=== PATIENT | female | born 1955 | race Caucasian/White ===

== ENCOUNTER → 2016-09-07 | Outpatient (CLI) | payer MEDICARE, MEDICAID | LOC: WI 12:54 | PROVIDERS: ATTEND Internal Medicine Medical Oncology | DX: Z12.31 Encounter for screening mammogram for malignant neoplasm of breast (principal); Z85.3 Personal history of malignant neoplasm of breast | CPT/HCPCS: 77066; G0204 ==

== ENCOUNTER → 2017-02-09 | Outpatient (CLI) | payer MEDICARE, MEDICAID ==
--- NOTE | 2017-02-09 13:12 | WOMENS IMAGING REPORT ---
EXAM DESCRIPTION: BONE DENSITY HIP/SPINE COMPLETED DATE/TIME: 02/09/2017 12:39 pm REASON FOR STUDY: OSTEOPOROSIS M81.0 AGE-RELATED OSTEOPOROSIS W/O CURRENT PATHOLOGICAL FRAC COMPARISON: 2014 TECHNIQUE: Dual-Energy X-ray Absorptiometry (DEXA) of the AP Spine and Hip. LIMITATIONS: None. FINDINGS: LUMBAR SPINE: The bone mineral density (BMD) measured from L1-L4 in the AP projection correlates with a T-score of -1.8, which is osteopenic as defined by the World Health Organization. HIP: The bone mineral density (BMD) measured in the left femoral neck at the hip correlates with a T-score of -2.6, which is osteoporotic as defined by the World Health Organization. IMPRESSION: 1. LUMBAR SPINE: Osteopenic 2. HIP: Osteoporotic COMMENT: The World Health Organization defines low BMD as follows: T-score: Normal: Greater than -1.0 Osteopenia: Between -1.0 and -2.5 Osteoporosis: Less than -2.5 without fractures Established osteoporosis: Less than -2.5 with fractures In general, you may wish to consider: Diagnosis Treatment Follow-up DEXA Normal BMD Prevention 2-3 years Osteopenia Prevention/Therapy 1-2 years Osteoporosis Therapy Yearly TECHNICAL DOCUMENTATION: JOB ID: [id number]- All Rights Reserved
== END ==
LOC: WI 10:27
PROVIDERS: ATTEND Internal Medicine Medical Oncology
DX: M81.0 Age-related osteoporosis without current pathological fracture (principal)
CPT/HCPCS: 77080

== ENCOUNTER → 2017-07-28 | Outpatient (CLI) | payer MEDICARE, MEDICAID ==
--- NOTE | 2017-07-30 12:33 | XCELERA REPORT ---
[address] [address] Transthoracic Echocardiogram Report Name: MERLY SETHI Age: 62 yrs Gender: Female : 1955 Patient Status: Outpatient Patient Location: Study Date: 07/28/2017 10:58 AM Height: 60 in Weight: 117 lb BSA: 1.5 m2 Procedure: A two-dimensional transthoracic echocardiogram with color flow Doppler was performed. The study was technically good with many images being of high quality. Reason For Study: PALPITYATIONS History: PALPITYATIONS. Ordering Physician: CARMENZA DENNEY Performed By: Kimberly Mercer Interpretation Summary There is normal left ventricular wall thickness. LV EF is > THAN 60% Left ventricular systolic function is normal. Doppler measurements suggest normal left ventricular diastolic function The left ventricular wall motion is normal. There is no thrombus. The right ventricle is normal in size and function. The right atrium is normal. The left atrial size is normal. The interatrial septum is intact with no evidence for an atrial septal defect. There is no evidence of mitral valve prolapse. There is no vegetation seen on the mitral valve. There is no mitral valve stenosis. There is a mild amount of mitral regurgitation There is no aortic valvular vegetation. There is no aortic valve stenosis There is no LVOT obstruction. No aortic regurgitation is present. There is no tricuspid stenosis. There is a trace to mild amount of tricuspid regurgitation Right ventricular systolic pressure is at the upper limits of normal of normal.RVSP is 30 mm of Hg , with RA mean of 5. There is no pulmonic valvular stenosis. There is no pulmonic valvular regurgitation. The aortic root is normal size. There is no pericardial effusion. MMode/2D Measurements & Calculations RVDd: 3.0 cm LVIDd: 4.2 cm FS: 33.8 % Ao root diam: 3.2 cm IVSd: 0.82 cm LVIDs: 2.8 cm EDV(Teich): 78.1 ml LVPWd: 0.79 cm ESV(Teich): 28.9 ml Ao root area: 7.8 cm2 EF(Teich): 63.0 % Doppler Measurements & Calculations MV E max berta: MV dec slope: Ao V2 max: LV V1 max P.0 cm/sec 114.0 cm/sec 4.8 mmHg MV A max berta: 381.3 cm/sec2 Ao max PG: LV V1 max: 74.6 cm/sec MV dec time: 5.2 mmHg 109.2 cm/sec MV E/A: 1.1 0.22 sec PA V2 max: TR max berta: 69.2 cm/sec 249.4 cm/sec PA max PG: TR max P.9 mmHg 1.9 mmHg Left Ventricle The left ventricle is normal in size. There is normal left ventricular wall thickness. LV EF is > THAN 60%. Left ventricular systolic function is normal. Doppler measurements suggest normal left ventricular diastolic function. The left ventricular wall motion is normal. There is no thrombus. There is no ventricular septal defect visualized. Right Ventricle The right ventricle is normal in size and function. Atria The right atrium is normal. The left atrial size is normal. The interatrial septum is intact with no evidence for an atrial septal defect. Mitral Valve There is no evidence of mitral valve prolapse. There is no vegetation seen on the mitral valve. There is no mitral valve stenosis. There is a mild amount of mitral regurgitation. Aortic Valve There is no aortic valvular vegetation. There is no aortic valve stenosis. There is no LVOT obstruction. No aortic regurgitation is present. Tricuspid Valve There is no tricuspid stenosis. There is a trace to mild amount of tricuspid regurgitation. Right ventricular systolic pressure is at the upper limits of normal. of normal.RVSP is 30 mm of Hg , with RA mean of 5. Pulmonic Valve There is no pulmonic valvular stenosis. There is no pulmonic valvular regurgitation. Great Vessels The aortic root is normal size. Effusions There is no pericardial effusion. : CARMENZA DENNEY > Carmenza Denney
== END ==
LOC: SP 10:49
PROVIDERS: ATTEND Specialist
DX: R01.1 Cardiac murmur, unspecified (principal)
CPT/HCPCS: 93306

== ENCOUNTER → 2017-08-03 | Outpatient (CLI) | payer MEDICARE, MEDICAID ==
--- NOTE | 2017-08-03 12:08 | RADIOLOGY REPORT (SQ) ---
EXAM DESCRIPTION: CHEST PA/LAT COMPLETED DATE/TIME: 08/03/2017 10:11 am REASON FOR STUDY: COPD COMPARISON: None. EXAM PARAMETERS: NUMBER OF VIEWS: two views TECHNIQUE: Digital Frontal and Lateral radiographic views of the chest acquired. RADIATION DOSE: NA LIMITATIONS: none FINDINGS: LUNGS AND PLEURA: No opacities, masses or pneumothorax. No pleural effusion. MEDIASTINUM AND HILAR STRUCTURES: No masses or contour abnormalities. HEART AND VASCULAR STRUCTURES: Heart normal size. No evidence for failure. BONES: No acute findings. HARDWARE: Clips overlying right breast. OTHER: No other significant finding. IMPRESSION: NO ACUTE RADIOGRAPHIC FINDING IN THE CHEST. TECHNICAL DOCUMENTATION: JOB ID: [id number] [employer]- All Rights Reserved
== END ==
LOC: RAD 09:41
PROVIDERS: ATTEND Physician Assistant
DX: J44.9 Chronic obstructive pulmonary disease, unspecified (principal)
CPT/HCPCS: 71046

== ENCOUNTER → 2017-08-17 | Outpatient (CLI) | payer MEDICARE, MEDICAID ==
--- NOTE | 2017-08-18 09:13 | RADIOLOGY REPORT (SQ) ---
EXAM DESCRIPTION: PET CT SKULL/THIGH COMPLETED DATE/TIME: 08/17/2017 11:20 pm REASON FOR STUDY: ENLARGED LYMPH NODES C73 MALIGNANT NEOPLASM OF THYROID GLAND COMPARISON: None. RADIONUCLIDE AND DOSE: 11.3 mCi F18 FDG The route of agent administration: Intravenous FASTING BLOOD SUGAR: 88 mg/dl CONTRAST TYPE AND DOSE: No CT contrast given. TECHNIQUE: Blood glucose level was verified. Above dose of FDG was injected intravenously. 2-D seg mented attenuation correction images were obtained from the base of the skull to the midthighs. Nonc ontrast CT images were obtained for attenuation correction and fusion with emission images. CT image s were performed without oral or intravenous contrast and are not sensitive for parenchymal lesions. A series of overlapping emission PET images were obtained. [facility] by the radiologist. Images stored on PACS. LIMITATIONS: None. FINDINGS: HEAD AND NECK: No areas of significant abnormal metabolic activity in the soft tissues of the head and neck. CHEST: No areas of abnormal metabolic activity in the chest. ABDOMEN AND PELVIS: No areas of abnormal metabolic activity in the abdomen or pelvis. Expected physi ologic activity is present in the genitourinary system and bowel. PROXIMAL LOWER EXTREMITIES: No areas of abnormal metabolic activity in the soft tissues of the lower extremities. BONES: No abnormal metabolic activity in the visualized skeleton. ADDITIONAL CT FINDINGS: Liver lesions most likely hemangiomas which have been previously imaged. Ant erior abdominal wall hernia containing fat. OTHER: No other significant findings. IMPRESSION: No evidence of metastatic disease. TECHNICAL DOCUMENTATION: JOB ID: [id number] [employer]- All Rights Reserved
== END ==
LOC: RAD 16:57
PROVIDERS: ATTEND Internal Medicine Medical Oncology
DX: C73 Malignant neoplasm of thyroid gland (principal); R59.0 Localized enlarged lymph nodes
CPT/HCPCS: 78815; A9552

== ENCOUNTER → 2017-09-09 | Outpatient (CLI) | payer MEDICARE, MEDICAID ==
--- NOTE | 2017-09-09 10:28 | WOMENS IMAGING REPORT ---
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 TECHNIQUE: Standard craniocaudal and mediolateral oblique views of each breast recorded using digita l acquisition and breast tomosynthesis. Additional true lateral and spot compression lateral and CC images of the right breast acquired. LIMITATIONS: None. FINDINGS: RIGHT BREAST MASSES: No suspicious masses. CALCIFICATIONS: No new or suspicious calcifications. ARCHITECTURAL DISTORTION: Stable surgical changes. DEVELOPING DENSITY: None. ASYMMETRY: None noted. OTHER: No other significant findings. LEFT BREAST MASSES: Small round circumscribed mass in the retroareolar breast which has increased in size slightl y from the prior study. CALCIFICATIONS: No new or suspicious calcifications. ARCHITECTURAL DISTORTION: None. DEVELOPING DENSITY: None. ASYMMETRY: None noted. OTHER: No other significant finding. Read with the assistance of CAD: .[facility] - R2 Cenova Version 1.3 .[facility] Imaging - R2 Cenova Version 1.3 .[facility] Imaging - R2 Cenova Version 2.4 .[facility] - R2 Cenova Version 2.4 .[facility] - R2 [employer]er Version 9.2 BREAST ULTRASOUND: TECHNIQUE: Static and dynamic grayscale images acquired of the left breast in the specific areas of c linical/mammographic concern. Selected color Doppler images recorded. ELASTOGRAPHY PERFORMED: No. LIMITATIONS: None. FINDINGS: MASS: In the 12 o'clock location there is a 5 mm anechoic cyst. No solid mass identified. Normal gl andular tissue. ELASTOGRAPHY CHARACTERISTICS: Not applicable. OTHER: No other significant finding. IMPRESSION: SMALL CYST IN THE RETROAREOLAR LEFT BREAST. OTHERWISE STABLE MAMMOGRAPHIC APPEARANCE OF BOTH BREASTS. STABLE SURGICAL CHANGES IN THE RIGHT BREAST. BREAST DENSITY: b. There are scattered areas of fibroglandular density. BIRAD: 2 Benign findings. RECOMMENDATION: RECOMMENDED FOLLOW UP: Post lumpectomy protocol. COMMENT: The patient has been notified of the results by letter per MQSA requirements. Additional no tification policies are in place for contacting patient with suspicious or incomplete findings. Quality ID #225: The [employer] recommends an annual screening mammogram for women aged 40 years or over. This facility utilizes a reminder system to ensure that all patients receive reminder letters, and/or direct phone calls for appointments. This includes reminders for routine scr eening mammograms, diagnostic mammograms, or other Breast Imaging Interventions when appropriate. Th is patient will be placed in the appropriate reminder system. The [employer] (ACR) has developed recommendations for screening MRI of the breast s in certain patient populations, to be used in conjunction with mammography. Breast MRI surveillanc e may be appropriate for women with more than 20% lifetime risk of developing breast cancer as deter mined by genetic testing, significant family history of the disease, or history of mantle radiation f or Hodgkins Disease. ACR Practice Guidelines 2008. DBT Technology DBT is a type of tomographic mammography. With conventional mammography, overlapping breast tissue ma y make lesions difficult to detect, even with good compression. DBT uses an x-ray tube that rotates a round the breast, taking images at different angles. These images are then combined to create thin sl ices of the breast that the radiologist can view as a 3D reconstruction. The [email or web address] unit can perform full-field digital mammograms (2D imaging); or DBT (3D imaging); or both, in a combination mode that quickly performs both the mammogram and the tomosynthesis scan while the breast is still compressed. PQRS 6045F: Fluoroscopic imaging is not utilized for breast tomosynthesis. TECHNICAL DOCUMENTATION: FINDING NUMBER: (1) ASSESSMENT: (1) JOB ID: [id number] [employer]- All Rights Reserved Reading location - IP/workstation name: [email or web address]
--- NOTE | 2017-09-09 10:28 | WOMENS IMAGING REPORT ---
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 TECHNIQUE: Standard craniocaudal and mediolateral oblique views of each breast recorded using digita l acquisition and breast tomosynthesis. Additional true lateral and spot compression lateral and CC images of the right breast acquired. LIMITATIONS: None. FINDINGS: RIGHT BREAST MASSES: No suspicious masses. CALCIFICATIONS: No new or suspicious calcifications. ARCHITECTURAL DISTORTION: Stable surgical changes. DEVELOPING DENSITY: None. ASYMMETRY: None noted. OTHER: No other significant findings. LEFT BREAST MASSES: Small round circumscribed mass in the retroareolar breast which has increased in size slightl y from the prior study. CALCIFICATIONS: No new or suspicious calcifications. ARCHITECTURAL DISTORTION: None. DEVELOPING DENSITY: None. ASYMMETRY: None noted. OTHER: No other significant finding. Read with the assistance of CAD: .[facility] - R2 Cenova Version 1.3 .[facility] Imaging - R2 Cenova Version 1.3 .[facility] Imaging - R2 Cenova Version 2.4 .[facility] - R2 Cenova Version 2.4 .[facility] - R2 [employer] Worker Version 9.2 BREAST ULTRASOUND: TECHNIQUE: Static and dynamic grayscale images acquired of the left breast in the specific areas of c linical/mammographic concern. Selected color Doppler images recorded. ELASTOGRAPHY PERFORMED: No. LIMITATIONS: None. FINDINGS: MASS: In the 12 o'clock location there is a 5 mm anechoic cyst. No solid mass identified. Normal gl andular tissue. ELASTOGRAPHY CHARACTERISTICS: Not applicable. OTHER: No other significant finding. IMPRESSION: SMALL CYST IN THE RETROAREOLAR LEFT BREAST. OTHERWISE STABLE MAMMOGRAPHIC APPEARANCE OF BOTH BREASTS. STABLE SURGICAL CHANGES IN THE RIGHT BREAST. BREAST DENSITY: b. There are scattered areas of fibroglandular density. BIRAD: 2 Benign findings. RECOMMENDATION: RECOMMENDED FOLLOW UP: Post lumpectomy protocol. COMMENT: The patient has been notified of the results by letter per MQSA requirements. Additional no tification policies are in place for contacting patient with suspicious or incomplete findings. Quality ID #225: The [employer] recommends an annual screening mammogram for women aged 40 years or over. This facility utilizes a reminder system to ensure that all patients receive reminder letters, and/or direct phone calls for appointments. This includes reminders for routine scr eening mammograms, diagnostic mammograms, or other Breast Imaging Interventions when appropriate. Th is patient will be placed in the appropriate reminder system. The [employer] (ACR) has developed recommendations for screening MRI of the breast s in certain patient populations, to be used in conjunction with mammography. Breast MRI surveillanc e may be appropriate for women with more than 20% lifetime risk of developing breast cancer as deter mined by genetic testing, significant family history of the disease, or history of mantle radiation f or Hodgkins Disease. ACR Practice Guidelines 2008. DBT Technology DBT is a type of tomographic mammography. With conventional mammography, overlapping breast tissue ma y make lesions difficult to detect, even with good compression. DBT uses an x-ray tube that rotates a round the breast, taking images at different angles. These images are then combined to create thin sl ices of the breast that the radiologist can view as a 3D reconstruction. The [employer] unit can perform full-field digital mammograms (2D imaging); or DBT (3D imaging); or both, in a combination mode that quickly performs both the mammogram and the tomosynthesis scan while the breast is still compressed. PQRS 6045F: Fluoroscopic imaging is not utilized for breast tomosynthesis. TECHNICAL DOCUMENTATION: FINDING NUMBER: (1) ASSESSMENT: (1) JOB ID: [id number] [place]- All Rights Reserved Reading location - IP/workstation name: [email or web address]
== END ==
LOC: WI 08:50
PROVIDERS: ATTEND Internal Medicine Medical Oncology
DX: C50.911 Malignant neoplasm of unspecified site of right female breast (principal); N60.02 Solitary cyst of left breast
CPT/HCPCS: 76642; 77066; G0279; 77062

== ENCOUNTER → 2017-10-04 | Outpatient (CLI) | payer MEDICARE, MEDICAID ==
--- NOTE | 2017-10-04 08:23 | RADIOLOGY REPORT (SQ) ---
EXAM DESCRIPTION: U/S ABD AORTIC SCREENING COMPLETED DATE/TIME: 10/04/2017 7:39 am REASON FOR STUDY: NICOTINE DEPENDENCE (F17.200) F17.200 NICOTINE DEPENDENCE, UNSPECIFIED, UNCOMPLIC ATED COMPARISON: PET-CT 08/17/2017 TECHNIQUE: Static and dynamic grayscale images acquired of the aorta and stored on PACs. Selected co arvind Doppler and spectral images recorded. LIMITATIONS: None. FINDINGS: AORTIC CALIBER MAXIMAL PROXIMAL: 2.5 cm. MID: 1.9 cm. DISTAL: 1.3 cm. ILIAC DIAMETER RIGHT: 0.6 cm. LEFT: 0.9 cm. OTHER: No other significant finding. IMPRESSION: NO ABDOMINAL AORTIC ANEURYSM. COMMENT: Aorta screening examinations categories: Negative - less than 3 cm. TECHNICAL DOCUMENTATION: JOB ID: [id number] [employer]- All Rights Reserved Reading location - IP/workstation name: [email or web address]
== END ==
LOC: RAD 09-24 11:03
PROVIDERS: ATTEND Family Medicine
DX: Z13.6 Encounter for screening for cardiovascular disorders (principal); Z87.891 Personal history of nicotine dependence
CPT/HCPCS: 76706

== ENCOUNTER 2017-11-17 09:54 | Day surgery (SDC) | payer MEDICARE, MEDICAID ==
[2017-11-15 11:27] LABS: ABSOLUTE EOSINOPHILS # (AUTO) 0.1 10^3/uL (0.0-0.6); ABSOLUTE LYMPHOCYTES (AUTO) 1.2 10^3/uL (0.5-4.7); ABSOLUTE MONOCYTES (AUTO) 0.4 10^3/uL (0.1-1.4); ABSOLUTE NEUT (AUTO) 3.9 10^3/uL (1.7-8.2); BASOPHILS % (AUTO) 0.6 % (0-2); EOSINOPHILS % (AUTO) 1.4 % (0-6); HEMATOCRIT 41.1 % (36.0-47.0); LYMPHOCYTES % (AUTO) 21.5 % (13-45); MEAN CORPUSCULAR HEMOGLOBIN 31.5 pg (27.0-33.4); MEAN CORPUSCULAR HGB CONC 34.1 g/dL (32.0-36.0); MEAN CORPUSCULAR VOLUME 92 fl (80-97); MONOCYTES % (AUTO) 7.9 % (3-13); PLATELET COUNT 200 10^3/uL (150-450); RED BLOOD COUNT 4.46 10^6/uL (3.72-5.28); RED CELL DISTRIBUTION WIDTH 13.3 % (11.5-14.0); SEGMENTED NEUTROPHILS % (AUTO) 68.6 % (42-78); TOTAL CELLS COUNTED % (AUTO) 100 %; WHITE BLOOD COUNT 5.7 10^3/uL (4.0-10.5)
[2017-11-15 11:43] LABS: ANION GAP 8 (5-19); BLOOD UREA NITROGEN 13 mg/dL (7-20); CALCIUM 9.5 mg/dL (8.4-10.2); CARBON DIOXIDE 30 mmol/L (22-30); CHLORIDE 105 mmol/L (98-107); GLUCOSE 68 mg/dL (75-110); SODIUM 143.4 mmol/L (137-145)
--- NOTE | 2017-11-15 20:08 | EKG REPORT ---
SEVERITY:- NORMAL ECG - SINUS RHYTHM : Confirmed by: Doyle Ayala 15-Nov-2017 20:08:12
[~2017-11-17 09:54] MED LIST: CEFAZOLIN 1 GM/D5W RTU 1 GM/50 ML RTUPB IV PRN; LACTATED RINGERS 1000 ML IV PRN; LIDOCAINE 0.5% INJ-PF (5 MG/ML) 50 ML SDV SUBCUT PRN
[2017-11-17] MEDS ORDERED: LIDOCAINE 2% INJ-PF (20 MG/ML) 2 ML AMPUL ONE (10:25)
[2017-11-17] MEDS ORDERED: ONDANSETRON HCL INJ/PF 4 MG/2 ML SDV ONE (10:25)
[2017-11-17] MEDS ORDERED: LIDOCAINE 2% URO-JET 5 ML KIT ONE (10:50)
[2017-11-17] MEDS ORDERED: FENTANYL CITRATE INJ/PF 100 MCG/2 ML AMPUL ONE ×3 (10:58→13:22)
[2017-11-17] MEDS ORDERED: PROPOFOL INJ 200 MG/20 ML VIAL IV ONE (10:59)
[2017-11-17] MEDS ORDERED: MIDAZOLAM 2 MG/2 ML INJ ONE ×2 (10:59→11:07)
[2017-11-17] MEDS ORDERED: DIPHENHYDRAMINE HCL 50 MG/ML VIAL IV PRN (13:15)
[2017-11-17] MEDS ORDERED: PROMETHAZINE HCL INJ 25 MG/1 ML VIAL IV PRN (13:15)
[2017-11-17] MEDS ORDERED: FENTANYL CITRATE INJ/PF 100 MCG/2 ML AMPUL IV PRN ×3 (13:15)
[2017-11-17] MEDS ORDERED: ACETAMINOPHEN 325 MG TABLET PO PRN (13:27)
[2017-11-17] MEDS ORDERED: PHENAZOPYRIDINE HCL 200 MG TABLET ONE (13:33)
[2017-11-17] MEDS ORDERED: KETOROLAC TROMETHAMINE INJ/PF 30 MG/1 ML SDV ONE (13:34)
--- NOTE | 2017-11-17 13:55 | OPERATIVE REPORT E ---
Operative Report NAME: MERLY SETHI : 1955 AGE: 62Y DATE OF SURGERY: 11/17/2017 ROOM: PREOPERATIVE DIAGNOSIS: Hematuria. POSTOPERATIVE DIAGNOSIS: Hematuria. OPERATIVE PROCEDURE: 1. Cystoscopy with bladder biopsy. 2. Cystoscopy with bilateral retrograde. SURGEON: LEONCIO STEVENSON M.D. LICENSED VOCATIONAL NURSE: None. SPECIMENS: Bladder tissue. COMPLICATIONS: None. BLEEDING: Minimal. INDICATIONS: The patient is a 62-year-old female with a history of radiation in the past. She has had gross hematuria and had office cystoscopy, which showed changes of radiation cystitis. She also has a long history of smoking. She had some changes in the mucosa that I felt should be biopsied. Accordingly, cystoscopy with bladder biopsy with bilateral retrograde just planned. OPERATION: After the patient was identified in the preop holding area, she was brought to the operating room. A timeout was performed where the correct patient and procedure was confirmed. She was then given sedation. She was next carefully positioned in dorsal lithotomy position. A #23 sheath and obturator was inserted into the bladder. The bladder was carefully examined. There were changes in the mucosa, which were subtle and most likely due to radiation cystitis. These were particularly noticeable on the posterior bladder wall. The direct sales representative area was biopsied with cold cup. The base and periphery of the biopsy site was cauterized with electrocautery. The remainder of the bladder appeared unremarkable. There were no specific lesions per se, just some mucosal inflammatory changes. BILATERAL RETROGRADES: An open-ended catheter was positioned at the right ureteral orifice. A total of 10 mL of Omnipaque was used to fill the ureter and upper collecting system. There was no evidence of filling defect or obstruction. Impression: Normal right retrograde. An open-ended catheter was positioned inside the left ureteral orifice. A total of 10 mL of Omnipaque was used to fill the left ureter and upper collecting system. There were no filling defects or obstruction noted. Impression: Normal left retrograde. The patient tolerated this procedure well and was returned to the recovery room in a satisfactory condition. DICTATING PHYSICIAN: LEONCIO STEVENSON M.D. [id number] PHY#: [id number] ID: [id number] JOB#: [id number] ACCT: [id number] cc:LEONCIO STEVENSON M.D. >
[2017-11-17] MEDS ORDERED: PHENAZOPYRIDINE HCL 200 MG TABLET PO ONE (14:00)
[2017-11-17] MEDS ORDERED: KETOROLAC TROMETHAMINE INJ/PF 30 MG/1 ML SDV IV ONE (14:00)
[2017-11-17 15:03] VITALS: BP 155/83
--- NOTE | 2017-11-17 16:28 | RADIOLOGY REPORT (SQ) ---
EXAM DESCRIPTION: PYELOGRAM RETROGRADE COMPLETED DATE/TIME: 11/17/2017 3:36 pm REASON FOR STUDY: BILATERAL RETROGRADE IN OR N32.9 BLADDER DISORDER, UNSPECIFIED Z79.01 WOUND TREATMENT RN (CURRENT) USE OF ANTICOAGULANTS COMPARISON: None. FLUOROSCOPY TIME: Fluoroscopy was not performed. Multiple abdominal x-rays required. 5 images saved to PACS. TECHNIQUE: Intra-operative images acquired during surgical procedure to evaluate progress. NUMBER OF IMAGES: 5 images. LIMITATIONS: None. FINDINGS: There is contrast filling of the collecting system of both kidneys. IMPRESSION: IMAGE(S) OBTAINED DURING PROCEDURE. COMMENT: Quality ID 145: Final reports for procedures using fluoroscopy that document radiation exp osure indices, or exposure time and number of fluorographic images (if radiation exposure indices are not available) Please consult full operative report of the attending physician for description of the procedure. TECHNICAL DOCUMENTATION: JOB ID: [id number] [employer]- All Rights Reserved Reading location - IP/workstation name: [email or web address]
== END 2017-11-17 14:55 | disposition home or self-care (01) ==
LOC: OROUT 09:54
PROVIDERS: ATTEND Urology
DX: N30.41 Irradiation cystitis with hematuria (principal); J44.9 Chronic obstructive pulmonary disease, unspecified; Z79.01 Long term (current) use of anticoagulants; Z87.891 Personal history of nicotine dependence; Z79.899 Other long term (current) drug therapy
CPT/HCPCS: 93005; 36415; 85025; 80048; 88305 ×2; 74420; 93010; 52204; C1758; J2250; J0690; J3010; J1885; A9270; J2405; J2704; J3490; 910

== ENCOUNTER → 2018-09-13 | Outpatient (CLI) | payer MEDICARE, MEDICAID ==
--- NOTE | 2018-09-13 11:28 | WOMENS IMAGING REPORT ---
EXAM DESCRIPTION: 3D DX MAMMO BILAT COMPLETED DATE/TIME: 09/13/2018 10:10 am REASON FOR STUDY: C50.911 MALIGNANT NEOPLASM OF UNSPECIFIED SITE OF RIGHT FEAMLE BREAST C50.911 MAL IGNANT NEOPLASM OF UNSP SITE OF RIGHT FEMALE NAOMI COMPARISON: Multiple since 2013 TECHNIQUE: Standard craniocaudal 90 mediolateral, and mediolateral oblique views of each breast rec orded using digital acquisition and breast tomosynthesis. LIMITATIONS: None. FINDINGS: RIGHT BREAST MASSES: No suspicious masses. CALCIFICATIONS: No new or suspicious calcifications. ARCHITECTURAL DISTORTION: Old postsurgical architectural distortion deep central 6 o'clock position r ight breast DEVELOPING DENSITY: None. ASYMMETRY: None noted. OTHER: No other significant findings. LEFT BREAST MASSES: No suspicious masses. CALCIFICATIONS: No new or suspicious calcifications. ARCHITECTURAL DISTORTION: None. DEVELOPING DENSITY: None. ASYMMETRY: None noted. OTHER: No other significant finding. Read with the assistance of CAD: .[facility] - R2 Cenova Version 1.3 .[facility] - R2 Cenova Version 2.1 .[facility] - R2 Cenova Version 2.4 .[facility] - R2 Cenova Version 2.4 .[facility] - R2 [employer] Version 9.2 IMPRESSION: No mammographic or tomosynthesis evidence for malignancy bilaterally BREAST DENSITY: b. There are scattered areas of fibroglandular density. BIRAD: 2 Benign findings. RECOMMENDATION: RECOMMENDED FOLLOW UP: Please continue yearly bilateral mammography/ tomosynthesis i n September 2019 SPECIFIC INTERVENTION/IMAGING/CONSULTATION RECOMMENDED:No additional intervention/ imaging/consultati on needed at this time. COMMUNICATION:The negative/benign results were communicated to the patient. COMMENT: The patient has been notified of the results by letter per SA requirements. Additional no tification policies are in place for contacting patient with suspicious or incomplete findings. Quality ID #225: The [employer] recommends an annual screening mammogram for women aged 40 years or over. This facility utilizes a reminder system to ensure that all patients receive reminder letters, and/or direct phone calls for appointments. This includes reminders for routine scr eening mammograms, diagnostic mammograms, or other Breast Imaging Interventions when appropriate. Th is patient will be placed in the appropriate reminder system. The [employer] (ACR) has developed recommendations for screening MRI of the breast s in certain patient populations, to be used in conjunction with mammography. Breast MRI surveillanc e may be appropriate for women with more than 20% lifetime risk of developing breast cancer as deter mined by genetic testing, significant family history of the disease, or history of mantle radiation f or Hodgkins Disease. ACR Practice Guidelines 2008. DBT Technology DBT is a type of tomographic mammography. With conventional mammography, overlapping breast tissue ma y make lesions difficult to detect, even with good compression. DBT uses an x-ray tube that rotates a round the breast, taking images at different angles. These images are then combined to create thin sl ices of the breast that the radiologist can view as a 3D reconstruction. The [employer] unit can perform full-field digital mammograms (2D imaging); or DBT (3D imaging); or both, in a combination mode that quickly performs both the mammogram and the tomosynthesis scan while the breast is still compressed. PQRS 6045F: Fluoroscopic imaging is not utilized for breast tomosynthesis. TECHNICAL DOCUMENTATION: FINDING NUMBER: (1) ASSESSMENT: (1) JOB ID: [id number] [employer]- All Rights Reserved Reading location - IP/workstation name: [email or web address]
== END ==
LOC: WI 09:57
PROVIDERS: ATTEND Internal Medicine Medical Oncology
DX: C50.911 Malignant neoplasm of unspecified site of right female breast (principal)
CPT/HCPCS: 77066; G0279; 77062

== ENCOUNTER 2018-10-18 03:25 | Emergency (ER) | payer MEDICARE, MEDICAID ==
[2018-10-18 06:44] VITALS: BP 161/94
--- NOTE | 2018-10-18 06:45 | ER Document Report ---
ED General - General Chief Complaint: High Blood Pressure Stated Complaint: BLOOD PRESURE PROBLEMS Time Seen by Provider: 10/18/18 06:20 Primary Care Provider: SUPA CAVANAUGH MD [Primary Care Provider] - Follow up as needed TRAVEL OUTSIDE OF THE [place] IN LAST 30 DAYS: No - HPI Notes: Patient is a 63-year-old female presents the emergency department for evaluation. She has a history of high blood pressure. She was laying in bed last night when she developed a headache. It was not an abnormal headache for her. Shortly afterwards she found her blood pressure to be elevated in the 140s. She took a half of metoprolol. She was still not comfortable, and an hour later took a pain pill and the other half of her metoprolol. She stated that this did not help either and her blood pressure was elevated to the 160s and 170s systolic. She continued to feel poorly so she called EMS. She states she can always tell when her blood pressure is elevated, she gets a similar headache. She states that during the course of that she did get some tightness in her chest. This is not an abnormal symptom for her either. She has a history of anxiety and has had similar chest pressure with anxiety. She has had blood work done as recently as July which she was told was unremarkable. At this time the patient states she has absolutely no symptoms other than being hungry. - Related Data Allergies/Adverse Reactions: No Known Allergies Allergy (Unverified 11/15/17 09:35) Past Medical History - General Information source: Patient - Social History Smoking Status: Current Every Day Smoker Family History: Reviewed & Not Pertinent Patient has suicidal ideation: No Patient has homicidal ideation: No - Past Medical History Cardiac Medical History: Reports: Hx Hypercholesterolemia, Hx Hypertension Denies: Hx Coronary Artery Disease, Hx Heart Attack Pulmonary Medical History: Reports: Hx Bronchitis, Hx COPD Denies: Hx Asthma, Hx Pneumonia Neurological Medical History: Denies: Hx Cerebrovascular Accident, Hx Seizures Renal/ Medical History: Denies: Hx Peritoneal Dialysis Malignancy Medical History: Reports: Hx Breast Cancer, Other - Thyroid cancer Musculoskeletal Medical History: Reports Hx Arthritis - GENERALIZED - Immunizations Hx Diphtheria, Pertussis, Tetanus Vaccination: Yes Review of Systems - Review of Systems Constitutional: No symptoms reported EENT: No symptoms reported Cardiovascular: See HPI Respiratory: No symptoms reported Gastrointestinal: No symptoms reported Genitourinary: No symptoms reported Musculoskeletal: No symptoms reported Skin: No symptoms reported Neurological/Psychological: No symptoms reported Physical Exam - Vital signs Vitals: Temp Pulse Resp BP Pulse Ox 97.9 F 77 18 163/82 H 98 10/18/18 03:30 10/18/18 03:30 10/18/18 03:30 10/18/18 03:30 10/18/18 03:30 - Notes Notes: Vital signs reviewed, please refer to chart. Patient is normocephalic, atraumatic. Pupils equal round, reactive to light. Neck is supple without meningismus. Heart is regular rate and rhythm. Lungs are clear to auscultation bilaterally. Abdomen is soft, nontender, normoactive bowel sounds throughout. Extremities without cyanosis, clubbing, edema. Peripheral pulses are equal. Skin is warm and dry. Patient is awake, alert, oriented x3. Cranial nerves II through XII are grossly intact without focal neurological deficits. Strength is plus 5 out of 5 bilateral upper and lower extremities. Sensation is intact. Intact finger nose finger, rapid altering movements, [id number]. Course - Re-evaluation Re-evalutation: 10/18/18 06:44 Patient presents to the emergency department for evaluation. She complained of elevated blood pressure. Her blood pressure remains moderately elevated. She has, however, had lows. Certainly I believe it is reasonable for the patient to have her blood pressure addressed more appropriately, but I believe this can be done as an outpatient. She has absolutely no symptoms here. Her headache and chest pain are all not new, she has had a recent negative stress test. She has no headache at this time, despite her continued mildly elevated blood pressure. She follows at [facility], she is to follow-up with them, call this morning for an appointment. She is to return to the emergency department with worsening or new concerning symptoms of any sort. - Vital Signs Vital signs: Temp Pulse Resp BP Pulse Ox 97.9 F 71 16 166/88 H 100 10/18/18 03:30 10/18/18 05:49 10/18/18 05:49 10/18/18 05:49 10/18/18 05:49 Discharge - Discharge Clinical Impression: Hypertension Condition: Stable Disposition: HOME, SELF-CARE Instructions: High Blood Pressure ([facility]) Additional Instructions: Continue your home medications as prescribed. Do not take extra metoprolol for elevated blood pressure. Follow-up with your primary care provider, you should discuss the addition of new or additional blood pressure medication. Return to the emergency department with worsening or new concerning symptoms. Forms: Smoking Cessation Education Referrals: SUPA CAVANAUGH MD [Primary Care Provider] - Follow up as needed
== END 2018-10-18 06:59 | disposition home or self-care (01) ==
LOC: ER 03:25
DX: I10 Essential (primary) hypertension (principal); Z79.899 Other long term (current) drug therapy; R51 Headache; R07.89 Other chest pain; F17.200 Nicotine dependence, unspecified, uncomplicated; J44.9 Chronic obstructive pulmonary disease, unspecified
CPT/HCPCS: 99283

== ENCOUNTER → 2019-02-07 | Outpatient (CLI) | payer MEDICARE, MEDICAID ==
--- NOTE | 2019-02-07 14:40 | RADIOLOGY REPORT (SQ) ---
EXAM DESCRIPTION: CT ABDOMEN WITH IV ORAL CONT COMPLETED DATE/TIME: 02/07/2019 1:46 pm REASON FOR STUDY: ABD PAIN, EPIGASTRIC (R10.13) R10.13 EPIGASTRIC PAIN COMPARISON: 03/12/2014 TECHNIQUE: CT scan of the abdomen performed with intravenous and with oral contrast using helical sc anning technique with dynamic intravenous contrast injection. Images reviewed with lung, soft tissue, and bone windows. Reconstructed coronal and sagittal MPR images reviewed. Delayed images for evaluat ion of the urinary system also acquired and evaluated. All images stored on PACS. All CT scanners at this facility use dose modulation, iterative reconstruc tion, and/or weight based dosing when appropriate to reduce radiation dose to as low as reasonably ac hievable (ALARA). [facility]: Dose Right [facility]: CareDose [facility]: Dose Right [facility]: Teradose 4D [facility]: [employer] CONTRAST TYPE AND DOSE: contrast/concentration: Isovue 350.00 mg/ml; Total Contrast Delivered: 62.0 ml; Total Saline Delivered: 65.0 ml RENAL FUNCTION: Creatinine 0.5 RADIATION DOSE: CT Rad equipment meets quality standard of care and radiation dose reduction techniq ues were employed. CTDIvol: 3.5 - 3.9 mGy. DLP: 235 mGy-cm. . LIMITATIONS: None. FINDINGS: LOWER CHEST: No significant findings. No nodules or infiltrates. LIVER: There are 3 lesions in the liver that show characteristics of hemangiomas. These are present on previous MRI. SPLEEN: Normal size. No focal lesions. PANCREAS: No masses. No significant calcifications. No adjacent inflammation or peripancreatic fluid collections. Pancreatic duct not dilated. GALLBLADDER: No identified stones by CT criteria. No inflammatory changes to suggest cholecystitis. ADRENAL GLANDS: 18 mm hypodense lesion in the left adrenal gland. RIGHT KIDNEY AND URETER: No solid masses. No significant calcifications. No hydronephrosis or hyd roureter. LEFT KIDNEY AND URETER: No solid masses. No significant calcifications. No hydronephrosis or hydr oureter. AORTA AND VESSELS: No aneurysm. No dissection. Renal arteries, SMA, celiac without stenosis. RETROPERITONEUM: No retroperitoneal adenopathy, hemorrhage or masses. BOWEL AND PERITONEAL CAVITY: No masses or inflammatory changes. No free fluid or peritoneal masses. APPENDIX: Not included. ABDOMINAL WALL: There is a 3 cm wide paraumbilical hernia containing unobstructed bowel. BONES: No significant or acute findings. OTHER: No other significant finding. IMPRESSION: Hepatic hemangiomas are present. Left adrenal adenoma. 3 cm wide paraumbilical hernia containing unobstructed bowel. TECHNICAL DOCUMENTATION: JOB ID: [id number] Quality ID # 436: Final reports with documentation of one or more dose reduction techniques (e.g., Au tomated exposure control, adjustment of the mA and/or kV according to patient size, use of iterative reconstruction technique) 2010 [employer]- All Rights Reserved Reading location - IP/workstation name: [email or web address]
== END ==
LOC: RAD 12:16
PROVIDERS: ATTEND Internal Medicine Gastroenterology
DX: K42.9 Umbilical hernia without obstruction or gangrene (principal); D35.02 Benign neoplasm of left adrenal gland; R10.13 Epigastric pain
CPT/HCPCS: 74160; 82565

== ENCOUNTER → 2019-02-20 | Outpatient (CLI) | payer MEDICARE, MEDICAID ==
--- NOTE | 2019-02-20 14:16 | WOMENS IMAGING REPORT ---
EXAM DESCRIPTION: BONE DENSITY HIP/SPINE COMPLETED DATE/TIME: 02/20/2019 1:40 pm REASON FOR STUDY: M81.0 AGE-RELATED OSTEOPOROSIS WITHOUT CURRENT PATHOLOGICAL FRACTURE M81.0 AGE-RE LATED OSTEOPOROSIS W/O CURRENT PATHOLOGICAL FRAC COMPARISON: 02/09/2017 02/01/2015 TECHNIQUE: Dual-Energy X-ray Absorptiometry (DEXA) of the AP Spine and Hip. LIMITATIONS: None. FINDINGS: LUMBAR SPINE: The bone mineral density (BMD) measured from L1-L4 in the AP projection correlates with a T-score of -1.0, which is normal as defined by the World Health Organization. BMD Change vs Baseline: +8.9% HIP: The bone mineral density (BMD) measured in the left hip correlates with a T-score of -2.8% in the fem oral neck, which is osteoporosis as defined by the World Health Organization. BMD Change vs Baseline: -6.8% 10 year Fracture Risk Assessment: Major Osteoporotic Fracture: Not available. Hip Fracture: Not available. IMPRESSION: 1. LUMBAR SPINE WHO CLASSIFICATION: Normal. 2. HIP WHO CLASSIFICATION: Osteoporosis. OVERALL ASSESSMENT: WHO CLASSIFICATION: Osteoporosis. COMMENT: The World Health Organization defines low BMD as follows: T-score: Normal: Greater than -1.0 Osteopenia: Between -1.0 and -2.5 Osteoporosis: Less than -2.5 without fractures Established osteoporosis: Less than -2.5 with fractures In general, you may wish to consider: Diagnosis Treatment Follow-up DEXA Normal BMD Prevention 2-3 years Osteopenia Prevention/Therapy 1-2 years Osteoporosis Therapy Yearly TECHNICAL DOCUMENTATION: JOB ID: [id number] [employer]- All Rights Reserved Reading location - IP/workstation name: [email or web address]
== END ==
LOC: WI 01-09 13:01
PROVIDERS: ATTEND Family Medicine
DX: M81.0 Age-related osteoporosis without current pathological fracture (principal)
CPT/HCPCS: 77080

== ENCOUNTER → 2019-08-22 | Outpatient (CLI) | payer MEDICARE, MEDICAID ==
--- NOTE | 2019-08-22 13:40 | RADIOLOGY REPORT (SQ) ---
EXAM DESCRIPTION: KNEE LEFT 4 VIEWS COMPLETED DATE/TIME: 08/22/2019 11:43 am REASON FOR STUDY: PAIN IN LEFT KNEE M25.562 PAIN IN LEFT KNEE COMPARISON: None. NUMBER OF VIEWS: Four views. TECHNIQUE: AP, lateral, and both oblique radiographic images acquired of the left knee. LIMITATIONS: None. FINDINGS: MINERALIZATION: Normal. BONES: No acute fracture or dislocation. No worrisome bone lesions. JOINT: No effusion. SOFT TISSUES: No soft tissue swelling. No radio-opaque foreign body. OTHER: No other significant finding. IMPRESSION: NEGATIVE STUDY OF THE LEFT KNEE. NO RADIOGRAPHIC EVIDENCE OF ACUTE INJURY. TECHNICAL DOCUMENTATION: JOB ID: [id number] 2010 [employer]- All Rights Reserved Reading location - IP/workstation name: [email or web address]
== END ==
LOC: OD 11:17
PROVIDERS: ATTEND Physician Assistant
DX: M25.562 Pain in left knee (principal)

== ENCOUNTER → 2019-11-24 | Outpatient (CLI) | payer MEDICARE, MEDICAID ==
--- NOTE | 2019-11-28 09:24 | WOMENS IMAGING REPORT ---
EXAM DESCRIPTION: BILAT SCREENING MAMMO W/CAD IMAGES COMPLETED DATE/TIME: 11/24/2019 12:43 pm REASON FOR STUDY: Z12.31 ENCOUNTER FOR SCREENING MAMMOGRAM FOR MALIGNANT NEOPLASM OF [id number] E NCNTR SCREEN MAMMOGRAM FOR MALIGNANT NEOPLASM OF ILIR COMPARISON: Multiple since 2014 EXAM PARAMETERS: Standard craniocaudal and mediolateral oblique views of each breast recorded using digital acquisition. Read with the assistance of CAD. .[facility] - [employer] Drafting Layout Worker Version 9.2 LIMITATIONS: None. FINDINGS: RIGHT BREAST MASSES: No suspicious masses. CALCIFICATIONS: No new or suspicious calcifications. ARCHITECTURAL DISTORTION: None. ASYMMETRY: None noted. OTHER: Old postsurgical changes right breast o'clock position. LEFT BREAST MASSES: 12 o'clock position about 4 cm from the nipple, a low-density subcentimeter well-circumscribe d mammographic mass present for which ultrasound is recommended for further characterization. CALCIFICATIONS: No new or suspicious calcifications. ARCHITECTURAL DISTORTION: None. ASYMMETRY: None noted. OTHER: No other significant findings. IMPRESSION: No mammographic evidence for malignancy right breast Subcentimeter mammographic mass left breast 12 o'clock position for which ultrasound is recommended f or further characterization 0 Incomplete: Needs Additional Imaging Evaluation and/or prior Mammograms for Comparison. BREAST DENSITY: b. There are scattered areas of fibroglandular density. BIRAD: ASSESSMENT: 0 Incomplete: Needs Additional Imaging Evaluation and/or prior Mammograms for C omparison. RECOMMENDATION: RECOMMENDED FOLLOW-UP: Left breast diagnostic ultrasound The patient will be contacted for additional imaging. COMMENT: The patient has been notified of the results by letter per SA requirements. Additional no tification policies are in place for contacting patient with suspicious or incomplete findings. Quality ID #225: The [employer] recommends an annual screening mammogram for women aged 40 years or over. This facility utilizes a reminder system to ensure that all patients receive reminder letters, and/or direct phone calls for appointments. This includes reminders for routine scr eening mammograms, diagnostic mammograms, or other Breast Imaging Interventions when appropriate. Th is patient will be placed in the appropriate reminder system. TECHNICAL DOCUMENTATION: FINDING NUMBER: (1) ASSESSMENT: (1) JOB ID: [id number] 2010 [employer]- All Rights Reserved Reading location - IP/workstation name: [email or web address]
== END ==
LOC: WI 12:27
PROVIDERS: ATTEND Family Medicine
DX: Z12.31 Encounter for screening mammogram for malignant neoplasm of breast (principal); N63.20 Unspecified lump in the left breast, unspecified quadrant
CPT/HCPCS: 77067

== ENCOUNTER → 2019-11-29 | Outpatient (CLI) | payer MEDICARE, MEDICAID ==
--- NOTE | 2019-11-29 17:46 | WOMENS IMAGING REPORT ---
EXAM DESCRIPTION: U/S BREAST UNILAT LIMITED IMAGES COMPLETED DATE/TIME: 11/29/2019 9:32 am REASON FOR STUDY: N63.42 BREAST ULTRASOUND N63.42 UNSPECIFIED LUMP IN LEFT BREAST, SUBAREOLAR COMPARISON: Mammograms 09/09/2017, 09/13/2018, 11/24/2019 Left breast ultrasound 09/09/2017 TECHNIQUE: Real-time and static grayscale imaging performed of the left breast targeted to the area of mammographic concern. Selected color Doppler images recorded. LIMITATIONS: None. FINDINGS: MASS: No mass identified. Normal glandular tissue. OTHER: A 5 x 3 mm well-circumscribed anechoic breast cyst is present at the 12 o'clock position, abou t 4 cm from the nipple. This correlates with the mammographic findings from 11/24/2019. This is a be nign finding and requires no further follow-up IMPRESSION: Benign left breast cyst 12 o'clock position, correlates with mammograms 11/24/2019 BIRAD: BI-RADS 2, benign findings RECOMMENDATION: RECOMMENDED FOLLOW-UP: Please continue yearly bilateral screening mammography/ tomos ynthesis November 2020 COMMENT: The [employer] (ACR) has developed recommendations for screening MRI of the breasts in certain patient populations, to be used in conjunction with mammography. Breast MRI s urveillance may be appropriate for women with more than 20% lifetime risk of developing breast cancer as determined by genetic testing, significant family history of the disease, or history of mantle r adiation for Hodgkins Disease. ACR Practice Guidelines 2008. TECHNICAL DOCUMENTATION: JOB ID: [id number] 2010 [employer]- All Rights Reserved Reading location - IP/workstation name: [email or web address]
== END ==
LOC: WI 09:10
PROVIDERS: ATTEND Family Medicine
DX: N60.02 Solitary cyst of left breast (principal)
CPT/HCPCS: 76642

== ENCOUNTER → 2020-04-15 | Outpatient (CLI) | payer MEDICARE, MEDICAID ==
--- NOTE | 2020-04-15 14:28 | RADIOLOGY REPORT (SQ) ---
EXAM DESCRIPTION: CT LUNG CANCER SCREENING IMAGES COMPLETED DATE/TIME: 04/15/2020 1:59 pm REASON FOR STUDY: TOBACCO ABUSE Z87.891 PERSONAL HISTORY OF NICOTINE DEPENDENCE Has the patient had a Chest CT scan within the past year? N Was the patient offered tobacco cessation counseling? Y Was the patient engaged in shared decision making for this test? N Does the patient have signs or symptoms of Lung Cancer? N Is the patient a smoker? Y How many pack years? 40YR How many years since quitting smoking? NA Patients age: 64 COMPARISON: 02/02/2019 TECHNIQUE: Low Dose CT scan performed of the chest without intravenous contrast for purposes of scre ening for lung cancer. Images reviewed with lung, soft tissue and bone windows. Reconstructed coron al and sagittal MPR images reviewed. All images stored on PACS. All CT scanners at this facility use dose modulation, iterative reconstruction, and/or weight based d osing when appropriate to reduce radiation dose to as low as reasonably achievable (ALARA). [facility]: Dose Right [facility]: CareDose [facility]: Dose Right [facility]: Teradose 4D [facility]: [employer] IP RADIATION DOSE: CT Rad equipment meets quality standard of care and radiation dose reduction techniq ues were employed. CTDIvol: 2.0 mGy. DLP: 77 mGy-cm. mGy. . LIMITATIONS: No technical limitations. FINDINGS: LUNG NODULES: Less than 4 mm calcified granuloma right lower lobe image 281 of series 2. REMAINING LUNGS AND PLEURA: No pleural effusions or calcifications. No pneumothorax. HILAR AND MEDIASTINAL STRUCTURES: No identified masses. No abnormal nodes. HEART AND VASCULAR STRUCTURES: No aortic aneurysm. No pericardial effusion. No cardiac devices. CORONARY ARTERY CALCIFICATIONS: Mild to moderate calcifications. UPPER ABDOMEN: Stable hepatic hemangiomas and left adrenal adenoma. THYROID AND OTHER SOFT TISSUES: No masses. No adenopathy. BONES: No significant finding. OTHER: No other significant findings. IMPRESSION: BENIGN FINDINGS IN THE LUNGS. OTHER FINDINGS ABOVE. LUNGRADS: LUNGRADS: 2 BENIGN APPEARANCE OR BEHAVIOR. NODULES WITH A VERY LOW LIKELIHOOD OF BECOMIN G A CLINICALLY ACTIVE CANCER DUE TO SIZE OR LACK OF GROWTH. MODIFIER: NONE. RECOMMENDATION: Continue annual screening with LDCT in 12 months. COMMENT: CRITERIA: Solid nodule(s): < 6 mm; new < 4 mm. Part solid nodule(s): < 6 mm total diameter on baseline screening. Non solid nodule(s) (GGN): < 20 mm OR ? 20 and unchanged or slowly growing. Category 3 or 4 nodules unchanged for ? 3 months. TECHNICAL DOCUMENTATION: JOB ID: [id number] Quality ID # 436: Final reports with documentation of one or more dose reduction techniques (e.g., Au tomated exposure control, adjustment of the mA and/or kV according to patient size, use of iterative reconstruction technique) 2011 [facility] Radiology 8 Reading location - IP/workstation name: [email or web address]
== END ==
LOC: RAD 13:38
PROVIDERS: ATTEND Registered Nurse
DX: Z12.2 Encounter for screening for malignant neoplasm of respiratory organs (principal); Z87.891 Personal history of nicotine dependence; I25.10 Atherosclerotic heart disease of native coronary artery without angina pectoris; D35.02 Benign neoplasm of left adrenal gland; D18.03 Hemangioma of intra-abdominal structures
CPT/HCPCS: G0297

== ENCOUNTER → 2020-06-20 | Outpatient (CLI) | payer MEDICARE, MEDICAID ==
--- NOTE | 2020-06-20 11:10 | RADIOLOGY REPORT (SQ) ---
EXAM DESCRIPTION: CTA CHEST IMAGES COMPLETED DATE/TIME: 06/20/2020 10:35 am REASON FOR STUDY: (R04.2)HEMOPTYSIS R04.2 HEMOPTYSIS COMPARISON: 04/15/2020 TECHNIQUE: CT scan of the chest performed using helical scanning technique with dynamic intravenous contrast injection. Images reviewed with lung, soft tissue and bone windows. Reconstructed coronal and sagittal MPR images reviewed. Additional 3 dimensional post-processing performed to develop Maximal Intensity Projection images (VT P). All images stored on PACS. All CT scanners at this facility use dose modulation, iterative reconstruction, and/or weight based d osing when appropriate to reduce radiation dose to as low as reasonably achievable (ALARA). [facility]: Dose Right [facility]: CareDose [facility]: Dose Right [facility]: Teradose 4D [facility]: [employer] CONTRAST TYPE AND DOSE: contrast/concentration: Isovue 350.00 mmol/ml; Total Contrast Delivered: 70. 0 ml; Total Saline Delivered: 65.0 ml RENAL FUNCTION: GFR > 60. RADIATION DOSE: CT Rad equipment meets quality standard of care and radiation dose reduction techniq ues were employed. CTDIvol: 5.6 - 5.8 mGy. DLP: 223 mGy-cm. . LIMITATIONS: None. FINDINGS: LUNGS AND PLEURA: No masses, infiltrates, or pneumothorax. No pleural effusions or pleura l calcifications. AORTA AND GREAT VESSELS: No aneurysm. No dissection. HEART: No pericardial effusion. PULMONARY ARTERIES: No emboli visualized in the main pulmonary arteries or the segmental branches. HILAR AND MEDIASTINAL STRUCTURES: No identified masses or abnormal nodes. HARDWARE: None in the chest. UPPER ABDOMEN: No significant findings. Limited exam. THYROID AND OTHER SOFT TISSUES: Clips inferior right breast. BONES: No acute or significant finding. 3D MIPS: Confirm above findings. OTHER: No other significant finding. IMPRESSION: No PE. No acute findings. COMMENT: Quality ID # 436: Final reports with documentation of one or more dose reduction techniques (e.g., Automated exposure control, adjustment of the mA and/or kV according to patient size, use of iterative reconstruction technique) TECHNICAL DOCUMENTATION: JOB ID: [id number] 2010 [facility]- All Rights Reserved Reading location - IP/workstation name: [email or web address]
== END ==
LOC: RAD 10:00
PROVIDERS: ATTEND Internal Medicine Pulmonary Disease
DX: R04.2 Hemoptysis (principal)
CPT/HCPCS: 71275; 82565